=== PATIENT | female | born 1960 | race Caucasian/White ===

== ENCOUNTER → 2018-11-27 | Emergency (ER) | payer OTHER ==
[~2018-11-27] VITALS: Ht 167.7 cm; Wt 63.6 kg
[~2018-11-27] MED LIST: LEVETIRACETAM 500 MG/5 ML (KEPPRA) VIAL IV ONE; LEVETIRACETAM INJECTION 1,000 MG in NS (IVPB) 100 ML IV SCH; LORazepam INJ 2 MG/ML (ATIVAN) VIAL IVP ONE; LORazepam INJ 2 MG/ML (ATIVAN) VIAL ONE; MIDAZOLAM 2 MG/2 ML (VERSED) VIAL IVP ONE; MIDAZOLAM 2 MG/2 ML (VERSED) VIAL ONE; NS (IVPB) 100 ML ONE; NS IV 1000 ML 1,000 ML IV SCH; NS IV 1000 ML 1,000 ML ONE; PHENYTOIN 250 MG/5 ML INJ (DILANTIN) VIAL ONE
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
--- NOTE | 2018-11-27 16:07 | NUR ---
This RN was sitting at desk when heard the patient make a noise in the room. Upon entering the room, the patient was seizing with arms and legs straight and jaw clenched. Arms began to shake and had secretions coming from mouth. This RN suctioned patient and called for Dr Saeed to come to room. Seizure activity lasted approximately 30 seconds.
--- NOTE | 2018-11-27 16:11 | NUR ---
Ativan 2 mg IV administered by Blanca ALCARAZ per verbal order Dr Saeed.
--- NOTE | 2018-11-27 16:20 | NUR ---
This RN walking just past room and noted with fist clenched and more upper body clonic-tonic seizure activity with jaws clenched with frothy secretions being spit from mouth. RN has to reposition head to open airway and C-collar removal at this time permitted to perform jaw thrust per Dr Saeed permission and getting suction whenever jaw clenching begins to relax. Pt safety maintained. Continue to hold on CT scans to stabilize pt to transport. Dr reed will go when seizure frequency is controlled. Notified to get ready for PCXR.
--- NOTE | 2018-11-27 16:23 | NUR ---
Versed 2 mg IV per Blanca ALCARAZ per verbal order Dr Saeed.
[2018-11-27 16:30] LABS: ALANINE AMINOTRANSFERASE 18 U/L (0-55); ALKALINE PHOSPHATASE 95 U/L (40-136); BILIRUBIN,TOTAL 0.5 MG/DL (0.1-1.0); BUN/CREATININE RATIO 17; CALCIUM 9.4 MG/DL (8.5-10.1); CARBON DIOXIDE 24 MMOL/L (21-32); CHLORIDE 103 MMOL/L (98-107); CREATININE SERUM 0.63 MG/DL (0.60-1.30); GFR ESTIMATED > 60; GLUCOSE 111 MG/DL (70-105); POTASSIUM 3.4 MMOL/L (3.6-5.0); SODIUM 141 MMOL/L (135-145)
[2018-11-27 16:31] LABS: ALBUMIN 4.3 GM/DL (3.2-4.5)
--- NOTE | 2018-11-27 16:44 | NUR ---
While attemtpting to scan Clarice patient began add'l seizure and med hung without scanning. Pt stiffened up and had jaw clenching with some upper body thrusting of upper torso. Suctioning required and attempts made many times with clenched teeth maintained. Dr notified by RN calling out again. Maintain head position with jaw thrusting per RN.
[2018-11-27 16:46] LABS: BASOPHILS % (AUTO) 1 % (0-10); EOSINOPHILS % (AUTO) 1 % (0-10); HEMATOCRIT 42 % (35-52); HEMOGLOBIN 13.3 G/DL (11.5-16.0); LYMPHOCYTES # (AUTO) 6.3 X 10^3 (1.0-4.0); LYMPHOCYTES % (AUTO) 33 % (12-44); MEAN CORPUSCULAR HEMOGLOBIN 32 PG (25-34); MEAN CORPUSCULAR HGB CONC 32 G/DL (32-36); MEAN CORPUSCULAR VOLUME 101 FL (80-99); MEAN PLATELET VOLUME 10.5 FL (7.4-10.4); MONOCYTES % (AUTO) 9 % (0-12); NEUTROPHILS # (AUTO) 10.9 X 10^3 (1.8-7.8); NEUTROPHILS % (AUTO) 56 % (42-75); PLATELET COUNT 384 10^3/uL (130-400); RED CELL DISTRIBUTION WIDTH 13.2 % (10.0-14.5); WHITE BLOOD COUNT 19.4 10^3/uL (4.3-11.0)
[2018-11-27 16:47] LABS: MONOCYTES # (AUTO) 1.7 X 10^3 (0.0-1.0)
--- NOTE | 2018-11-27 16:48 | NUR ---
Ativan 2 mg IV given per Blanca RN as per verbal order Dr Saeed. Oxymask placed at 8 L/m. Pt is mouth breathing and is not keeping Sats above 91%. O2 mask is maintaining sats up to 97-99%. Pt has sleep apneic sounding snorous respirations. Airway repositioned, C-spine immobilization and improves.
--- NOTE | 2018-11-27 17:00 | NUR ---
Keppra bolus ending.
--- NOTE | 2018-11-27 17:08 | Diagnostic Imaging Report ---
INDICATION: Unresponsive, seizure. Frontal chest obtained at 5:01 p.m. FINDINGS: Study is limited by poor aspiration. The heart is borderline in size. There is mild central vascular prominence. There is no focal consolidation, pneumothorax, or pleural fluid. IMPRESSION: Limited study due to poor inspiration. No definite consolidation or pleural fluid. There is mild central vascular prominence which may in part be due to poor inspiration. Dictated by: Dictated on workstation # [id number]
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
--- NOTE | 2018-11-27 17:12 | NUR ---
Discussed need to admit/transfer and family ask for [facility] but no ICU beds available. Change to [facility] was dgt selection and being confirmed with via phone.
--- NOTE | 2018-11-27 17:17 | NUR ---
To CT monitored by RN. Remains obtunded post seizure and medications. Responds to a painful stimuli with withdrawal.
[2018-11-27 17:25] LABS: BAND NEUTROPHILS 5 %; BASOPHILS % (MANUAL) 1 %; EOSINOPHILS % (MANUAL) 0 %; LYMPHOCYTES % (MANUAL) 54 %; METAMYELOCYTES % 1 %; MONOCYTES % (MANUAL) 4 %; NEUTROPHILS % (MANUAL) 35 %; RBC MORPH NORMAL
--- NOTE | 2018-11-27 17:30 | NUR ---
Continue to remain with patient and transferred to radiology dept to get pelvs xray. Pt has had no further seizure activity.
--- NOTE | 2018-11-27 17:45 | NUR ---
Paged for EMS [facility] transfer to [facility].
--- NOTE | 2018-11-27 17:46 | Diagnostic Imaging Report ---
Indication: Seizures, patient found unresponsive AP view pelvis shows no fracture or dislocation. Soft tissue structures appear normal. IMPRESSION: Negative pelvis Dictated by: Dictated on workstation # [id number]
--- NOTE | 2018-11-27 17:50 | NUR ---
present and signature obtained.
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
[2018-11-27 18:15] VITALS: BP 117/78
--- NOTE | 2018-11-27 18:15 | NUR ---
Departing to [facility] remaining post ictal/obtunded. See transfer form.
== END | disposition short-term general hospital (02) ==
LOC: ER FS 15:30 → MERGE 15:30
DX: S09.90XA Unspecified injury of head, initial encounter (principal); S40.022A Contusion of left upper arm, initial encounter; S30.0XXA Contusion of lower back and pelvis, initial encounter; R40.2142 Coma scale, eyes open, spontaneous, at arrival to emergency department; R40.2242 Coma scale, best verbal response, confused conversation, at arrival to emergency department; R40.2362 Coma scale, best motor response, obeys commands, at arrival to emergency department; V49.40XA Driver injured in collision with unspecified motor vehicles in traffic accident, initial encounter
CPT/HCPCS: 36415; 70450; 71045; 72125; 72170; 80053; 80185; 80320; 85007; 85027

== ENCOUNTER 2020-04-18 20:49 | Emergency (ER) | payer OTHER ==
--- NOTE | 2020-04-18 21:10 | ED Upper Extremity ---
General Chief Complaint: Upper Extremity Stated Complaint: RT SIDE NUMBNESS/PAIN Nursing Triage Note: Pt complaining of right shoulder pain that makes it difficult to lift or move her arm. Pt states it started this morning and has gotten worse throughout the day Nursing Sepsis Screen: No Definite Risk Source: patient Exam Limitations: no limitations History of Present Illness Date Seen by Provider: Apr 18, 2020 Time Seen by Provider: 20:50 Initial Comments Patient is a 59-year-old female who presents to the emergency department by POV today with a chief complaint of right shoulder pain. Patient states that she woke up this morning and her shoulder was fine but that throughout the day she started having increasing pain. Patient points to the front of her right shoulder and states that it hurts to move her arm. Patient is right-hand dominant. Patient denies any injury, falls or overuse. She states she works at [employer]. Patient states that she took 1 ibuprofen tablet this morning and it may have helped just a little bit. She has never had pain like this before. She denies any weakness to the right upper extremity. She states that she woke up this morning and both hands were numb but she has had a history of carpal tunnel surgery. She states the numbness went away. No recent illnesses, fevers, chills, congestion. No GI or complaints. All other review of systems reviewed and negative except as stated. Onset: this morning Pain/Injury Location: right shoulder Method of Injury: unknown Modifying Factors: Improves With Pain Medication (ibuprofen) Allergies and Home Medications Allergies Coded Allergies: No Known Drug Allergies (Unverified , 11/28/18) Patient Home Medication List Home Medication List Reviewed: Yes Review of Systems Constitutional: see HPI EENTM: no symptoms reported Respiratory: no symptoms reported Cardiovascular: no symptoms reported Gastrointestinal: no symptoms reported Genitourinary: no symptoms reported Musculoskeletal: joint pain (right shoulder) Skin: no symptoms reported All Other Systems Reviewed Negative Unless Noted: Yes Past Ufmmmys-Ifiuwp-Jacjrz Hx Patient Social History Alcohol Use: Occasionally Uses 2nd Hand Smoke Exposure: No Recent Infectious Disease Expo: No Immunizations Up To Date Tetanus Booster (TDap): Unknown Past Medical History 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 oz. kg; 22.00 BMI Method: General Appearance: WD/WN, no apparent distress Neck: non-tender, full range of motion Cardiovascular: regular rate, rhythm, systolic murmur (2/6 Systeolic ejection murmur heard best at the left upper sternal border) Respiratory: lungs clear, normal breath sounds Shoulder: normal inspection, no evidence of injury, limited ROM, pain (at the biceps tendon insertion right anterior shoulder) Elbow/Forearm: normal inspection, non-tender, no evidence of injury, normal ROM Wrist: Yes normal inspection, Yes non-tender, Yes no evidence of injury, Yes normal ROM Hand: normal inspection, non-tender, no evidence of injury, normal ROM Neurologic/Tendon: normal sensation, normal motor functions, normal tendon functions Neurologic/Psychiatric: alert, normal mood/affect, oriented x 3 Skin: normal color, warm/dry Progress/Results/Core Measures Results/Orders My Orders Orders - ERICA WHITMAN MD Ketorolac Injection (Toradol Injection) (04/18/20 21:15) Medications Given in ED Current Medications Medications Dose Ordered Sig/Gely Route Start Time Stop Time Status Last Admin Dose Admin Ketorolac Tromethamine 30 mg ONCE ONCE IM 04/18/20 21:15 04/18/20 21:16 04/18/20 21:06 30 MG Vital Signs/I&O 04/18/20 20:49 Temp 36.5 Pulse 76 Resp 16 B/P (MAP) 150/82 (104) Pulse Ox 98 O2 Delivery Room Air Blood Pressure Mean: 104 Progress Progress Note : Time: 21:10 Progress Note 59-year-old female presents with right shoulder pain. On exam the patient has point tenderness over the bicipital tendon. She has fairly decent range of motion but pain with abduction, extension and rotation. Good strength and sensation. Patient is treated in the emergency department with 30 mg of Toradol IM. She is advised to ice the shoulder, use ibuprofen and advised also that she should follow-up with her primary care doctor as this may require steroid injections to heal completely. She verbalized understanding. All questions are sought and answered. Patient is stable for discharge. Departure Impression Primary Impression: Bicipital tendonitis of right shoulder Disposition: 01 HOME, SELF-CARE Condition: Stable Departure-Patient Inst. Decision time for Depature: 21:07 Patient Instructions: Shoulder Pain ED Add. Discharge Instructions: You have Bicipital Tendonitis. This is best treated with rest and ice packs to the shoulder and non steroidal anti-inflammatory medications. You can take over the counter Ibuprofen 3 pills, which is 600mg, every 6-8 hours with food for pain. Some times steroid injections are required to help relieve the pain and cure the tendonitis. Please call and follow up with your family doctor if this is not improving after a week or so. ERICA WHITMAN MD Apr 18, 2020 21:10
[2020-04-18 21:14] VITALS: BP 150/82
[2020-04-18] MEDS ORDERED: KETOROLAC 30 MG/ML VIAL IM ONE (21:15)
== END 2020-04-18 21:16 | disposition home or self-care (01) ==
LOC: EDUNIT# 20:49 → ER FS 20:51
DX: M75.21 Bicipital tendinitis, right shoulder (principal)
CPT/HCPCS: 99284

== ENCOUNTER → 2020-09-09 | Outpatient (CLI) | payer OTHER ==
--- NOTE | 2020-09-09 17:24 | Diagnostic Imaging Report ---
INDICATION: Left knee pain. AP, oblique, and lateral views of the left knee are obtained. There is no acute fracture or acute bony abnormality. The medial and lateral joint spaces appear preserved. Patellofemoral compartment is unremarkable. There is an old healed distal femoral shaft fracture. IMPRESSION: No acute abnormality of the left knee. Old healed distal femoral shaft fracture. Dictated by: Dictated on workstation # [id number]
== END ==
LOC: RAD FS 15:42
PROVIDERS: ATTEND Nurse Practitioner Family
DX: M25.562 Pain in left knee (principal); Z87.81 Personal history of (healed) traumatic fracture
CPT/HCPCS: 73562

== ENCOUNTER 2021-08-14 11:12 | Emergency (ER) | payer SELFPAY ==
[~2021-08-14] VITALS: Ht 165.1 cm; Wt 95.3 kg
[2021-08-14 11:20] VITALS: BP 143/81
[2021-08-14] MEDS ORDERED: PANTOPRAZOLE 40 MG (PROTONIX) TAB PO ONE (11:30)
--- NOTE | 2021-08-14 11:35 | ED GI ---
General Chief Complaint: Abdominal/GI Problems Stated Complaint: BLOODY STOOL Source of Information: Patient Exam Limitations: No Limitations History of Present Illness Date Seen by Provider: Aug 14, 2021 Time Seen by Provider: 11:13 Initial Comments 60-year-old female with past medical history of seizures coming in as a referral from the urgent care due to bright red blood in her stool. Started around 8:30 AM yesterday, and has occurred roughly 5 times. She says it is bright red mixed in with regular brown stool. Has not been a large amount of bleeding. Has never happened before. Denies any lightheadedness, chest pain, shortness of breath, abdominal pain, nausea, vomiting, diarrhea, fever, chills, weakness, numbness, or any other concerns. Denies any history of liver disease, does not drink alcohol, does not take any blood thinners. Does take ibuprofen regularly and has for years. Allergies and Home Medications Allergies Coded Allergies: ampicillin (Verified Allergy, Unknown, 08/14/21) carbamazepine (Verified Allergy, Unknown, 08/14/21) Patient Home Medication List Home Medication List Reviewed: Yes Review of Systems Review of Systems Constitutional: No fever EENTM: No Blurred Vision Respiratory: Denies Cough Cardiovascular: Denies Chest Pain, Denies Lightheadedness Gastrointestinal: Denies Abdominal Pain; Rectal Bleeding Genitourinary: No Symptoms Reported Musculoskeletal: no symptoms reported Skin: no symptoms reported Psychiatric/Neurological: No Symptoms Reported Endocrine: No Symptoms Reported Hematologic/Lymphatic: No Symptoms Reported All Other Systems Reviewed Negative Unless Noted: Yes Past Vfmvpdv-Reofxa-Nfgnla Hx Patient Social History Tobacco Use?: No Substance use?: No Alcohol Use?: Yes Alcohol Frequency: Rarely Immunizations Up To Date Tetanus Booster (TDap): Unknown Past Medical History 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 oz. kg; 22.00 BMI Method: General Appearance: WD/WN, no apparent distress HEENT: PERRL/EOMI, normal ENT inspection, pharynx normal Neck: non-tender, full range of motion, supple, normal inspection Respiratory: chest non-tender, lungs clear, normal breath sounds, no respiratory distress, no accessory muscle use Cardiovascular: regular rate, rhythm, no edema, no murmur Gastrointestinal: normal bowel sounds, non tender, soft; No distended, No guarding, No rebound Rectal: normal rectal tone, hemorrhoids (external hemorrhoid with small amount of dried blood on it, hemostatic at this time), other (brown stool) Extremities: normal range of motion, non-tender, normal inspection, no pedal edema, no calf tenderness Back: normal inspection Neurologic/Psychiatric: no motor/sensory deficits, alert, normal mood/affect Skin: normal color, warm/dry Lymphatic: no adenopathy Progress/Results/Core Measures Results/Orders Lab Results Laboratory Tests Test 08/14/21 11:33 08/14/21 11:45 Range/Units White Blood Count 7.1 4.3-11.0 10^3/uL Red Blood Count 3.97 3.80-5.11 10^6/uL Hemoglobin 12.9 11.5-16.0 g/dL Hematocrit 38 35-52 % Mean Corpuscular Volume 96 80-99 fL Mean Corpuscular Hemoglobin 33 25-34 pg Mean Corpuscular Hemoglobin Concent 34 32-36 g/dL Red Cell Distribution Width 12.8 10.0-14.5 % Platelet Count 427 H 130-400 10^3/uL Mean Platelet Volume 10.2 9.0-12.2 fL Immature Granulocyte % (Auto) 0 % Neutrophils (%) (Auto) 37 L 42-75 % Lymphocytes (%) (Auto) 51 H 12-44 % Monocytes (%) (Auto) 9 0-12 % Eosinophils (%) (Auto) 2 0-10 % Basophils (%) (Auto) 1 0-10 % Neutrophils # (Auto) 2.6 1.8-7.8 10^3/uL Lymphocytes # (Auto) 3.6 1.0-4.0 10^3/uL Monocytes # (Auto) 0.6 0.0-1.0 10^3/uL Eosinophils # (Auto) 0.2 0.0-0.3 10^3/uL Basophils # (Auto) 0.1 0.0-0.1 10^3/uL Immature Granulocyte # (Auto) 0.0 0.0-0.1 10^3/uL Sodium Level 140 135-145 MMOL/L Potassium Level 4.2 3.6-5.0 MMOL/L Chloride Level 104 98-107 MMOL/L Carbon Dioxide Level 25 21-32 MMOL/L Anion Gap 11 5-14 MMOL/L Blood Urea Nitrogen 14 7-18 MG/DL Creatinine 0.50 L 0.60-1.30 MG/DL Estimat Glomerular Filtration Rate 109 BUN/Creatinine Ratio 28 Glucose Level 107 H 70-105 MG/DL Calcium Level 9.8 8.5-10.1 MG/DL Corrected Calcium 9.5 8.5-10.1 MG/DL Total Bilirubin 0.7 0.1-1.0 MG/DL Aspartate Amino Transf (AST/SGOT) 18 5-34 U/L Alanine Aminotransferase (ALT/SGPT) 18 0-55 U/L Alkaline Phosphatase 86 40-136 U/L Total Protein 7.8 6.4-8.2 GM/DL Albumin 4.4 3.2-4.5 GM/DL Prothrombin Time 13.0 12.2-14.7 SEC INR Comment 0.9 0.8-1.4 Activated Partial Thromboplast Time 27 24-35 SEC My Orders Orders - SHELLY SHIRLEY MD Cbc With Automated Diff (08/14/21 11:28) Comprehensive Metabolic Panel (08/14/21 11:28) Protime With Inr (08/14/21 11:28) Partial Thromboplastin Time (08/14/21 11:28) Pantoprazole Tablet (Protonix Tablet) (08/14/21 11:30) Medications Given in ED Current Medications Medications Dose Ordered Sig/Gely Route Start Time Stop Time Status Last Admin Dose Admin Pantoprazole Sodium 40 mg ONCE ONCE PO 08/14/21 11:30 08/14/21 11:31 DC 08/14/21 11:36 40 MG Vital Signs/I&O 08/14/21 11:20 Temp 36.3 Pulse 73 Resp 18 B/P (MAP) 143/81 (101) Pulse Ox 97 O2 Delivery Room Air Progress Progress Note : Progress Note 60-year-old female with above history coming in due to right red blood per rectum. ABCs were intact and vitals were stable on presentation. Physical exam with dried blood on one of the external hemorrhoids that is currently hemostatic. This is likely the culprit given the patient's story. She said she had a bowel movement this morning that was more normal. Does not have any liver disease or risk factors for significant upper GI bleed other than she takes ibuprofen intermittently. Is denying any pain, dyspepsia, nausea, or any other symptoms in her epigastric region making ulcerative disease unlikely. Departure Impression Primary Impression: Bleeding external hemorrhoids Disposition: HOME, SELF-CARE Condition: Stable Departure-Patient Inst. Decision time for Depature: 12:07 Referrals: BARBARA PAZ APRN (PCP/Family) Primary Care Physician Patient Instructions: Hemorrhoids (DC) Add. Discharge Instructions: He did have a bleeding hemorrhoid on exam. I recommend stool softeners to try to make your stool as easy to pass as possible, any straining at all can make bleeding worse. If there is ever a point where the there is a constant stream of blood coming out that will not stop, you begin feeling lightheaded, chest pain, or have any other concerns with this, then please come back to the ER or call your regular doctor. I do expect it to bleed some, particularly with wiping. When blood gets in to the water in the toilet, it does tend to look like more than there really is. Try to keep tabs on how much is coming out. If it increases or you are worried please come back to the ER and we can reevaluate you to see if the bleeding is significant. Work/School Note: Work Release Form Date Seen in the Emergency Department: Aug 14, 2021 Return to Work: Aug 16, 2021 Restrictions: No Restrictions SHELLY SHIRLEY MD Aug 14, 2021 11:35
[2021-08-14 11:37] LABS: BASOPHILS # (AUTO) 0.1 10^3/uL (0.0-0.1); BASOPHILS % (AUTO) 1 % (0-10); EOSINOPHILS # (AUTO) 0.2 10^3/uL (0.0-0.3); EOSINOPHILS % (AUTO) 2 % (0-10); HEMATOCRIT 38 % (35-52); HEMOGLOBIN 12.9 g/dL (11.5-16.0); LYMPHOCYTES # (AUTO) 3.6 10^3/uL (1.0-4.0); LYMPHOCYTES % (AUTO) 51 % (12-44); MEAN CORPUSCULAR HEMOGLOBIN 33 pg (25-34); MEAN CORPUSCULAR HGB CONC 34 g/dL (32-36); MEAN CORPUSCULAR VOLUME 96 fL (80-99); MEAN PLATELET VOLUME 10.2 fL (9.0-12.2); MONOCYTES # (AUTO) 0.6 10^3/uL (0.0-1.0); MONOCYTES % (AUTO) 9 % (0-12); NEUTROPHILS # (AUTO) 2.6 10^3/uL (1.8-7.8); NEUTROPHILS % (AUTO) 37 % (42-75); PLATELET COUNT 427 10^3/uL (130-400); WHITE BLOOD COUNT 7.1 10^3/uL (4.3-11.0)
[2021-08-14 12:00] LABS: BILIRUBIN,TOTAL 0.7 MG/DL (0.1-1.0); CALCIUM 9.8 MG/DL (8.5-10.1); CREATININE SERUM 0.5 MG/DL (0.60-1.30); POTASSIUM 4.2 MMOL/L (3.6-5.0); TOTAL PROTEIN 7.8 GM/DL (6.4-8.2)
[2021-08-14 12:01] LABS: ALBUMIN 4.4 GM/DL (3.2-4.5)
[2021-08-14 12:02] LABS: INR 0.9 (0.8-1.4)
== END 2021-08-14 12:27 | disposition home or self-care (01) ==
LOC: EDUNIT# 11:12 → ER FS 11:17
DX: K64.4 Residual hemorrhoidal skin tags (principal)
CPT/HCPCS: 36415; 80053; 85025; 85610; 85730